=== PATIENT | female | born 1955 | race Caucasian/White ===

== ENCOUNTER → 2016-08-02 | Outpatient (CLI) | payer OTHER ==
[~2016-08-02] MED LIST: ANEXSIA 5/325 M1 TA1 PO; ANTI-INFLAMMATORY; ASPIRIN81 M2 PO; CERTAGEN PO; CHOLESTEROL MED; COUMADIN4 MG PO; ETODOLAC500 MG PO; HYDROCODON-ACE1 EAC5 PO; LOPID600 MG PO; LOVENOX40 MG/0.4 INJ; MULTI VITAMIN1 EACH PO; PERCOCET 5/321 UDTAB PO; TRAMADOL HCL50 M1 PO; ULTRAM PO; VIT B-12; VITAMIN C250 M1 PO; [UNRECOGNIZED DRUG - OTHER]; [UNRECOGNIZED DRUG - OTHER] PO
--- NOTE | ~2016-08-02 | MY7 ---
[facility] A Service of [facility] RADIOLOGY TEXT RESULTS PATIENT: MYNOR LAUREN LOCATION: [facility] : 55 UNIT #: [id number] AGE: [address]: MELANIE MENDOZA MD SEX: F ORDER DR: [id number] [facility] [address] [place] [place], [place] [address] [id number] O MR#: [id number] Acc #: [id number] NAME: MYNOR LAUREN : 1955 SEX: F STUDY DATE/TIME: 08/02/2016 8:02 UNIT: [facility] ROOM: STUDY DESCRIPTION: MY Mammogram Dx Dig Lt Attending Physician: Melanie Mendoza M.D. Referring Physician: Melanie Mendoza M.D. Ordering Physician: Melanie Mendoza M.D. Primary Care Physician: Melanie Mendoza M.D. MEDICAL IMAGING REPORT This report is preliminary unless electronic signature is present EXAM Left digital diagnostic mammogram COMPARISON Right digital diagnostic mammogram dated January 20, 2016 as well screening mammograms dated January 19, 2016; November 11, 2014; November 09, 2013; October 07, 2011; January 16, 2010; April 26, 2008 and February 03, 2007. INDICATION 60-year-old female with 3 medial posterior third left breast asymmetries which were sonographically occult and thought to be probably benign, likely representing normal breast tissue excluded from field of view on prior mammograms. 6-month followup was recommended. FINDINGS Full field left CC, XCCM, MLO and ML views of the left breast were obtained. Breast tissues are extremely dense which may lower the sensitivity of mammography. The 2 asymmetries of concern do not persist on the full field left CC view confirming summation artifact. The mammographic pattern is otherwise stable. There are no suspicious findings seen in the left breast today. IMPRESSION No mammographic evidence of malignancy. The asymmetries of initial concern do not persist today and this is most consistent with summation artifact of normal overlapping fibroglandular tissues. The mammographic pattern now appears stable going back to multiple prior mammograms. Patient was instructed that given her dense breast tissue, she would benefit from annual screening breast tomosynthesis (3-D mammography) which is performed at [facility] on [address]. This is due to increased sensitivity for detection of small invasive cancers as well as diminished false positive callback rate. At the very least, [facility] A Service of [facility] RADIOLOGY TEXT RESULTS PATIENT: MYNOR LAUREN LOCATION: [facility] : 55 UNIT #: [id number] AGE: [address]: MELANIE MENDOZA MD SEX: F ORDER DR: continued annual 2-D screening mammography is recommended which is next due in January of this year. Findings and recommendations were discussed with the patient today. Patients over the age of 40 are entered into a reminder system with target due date for the next mammogram. A result letter will also be sent to the patient. BIRADS: 1 Negative Dictated by... Yobani Obrien M.D. THIS IS AN ELECTRONICALLY VERIFIED REPORT Yobani Obrien M.D. at 08/04/2016 12:00 PM Devorah TD: 08/02/2016 09:14 JOB #: [id number] MEDICAL IMAGING REPORT COPY
== END | disposition home or self-care (01) ==
LOC: CWCC 07:25
DX: N63 Unspecified lump in breast (principal)
CPT/HCPCS: G0206

== ENCOUNTER → 2016-08-20 | Day surgery (SDC) | payer OTHER ==
--- NOTE | ~2016-08-20 | OR ---
Unit #: [id number] #: [id number] Patient: MYNOR LAUREN [id number] [address] [place], [place] [address] [id number] O MR#: [id number] NAME: MYNOR LAUREN ROOM: Date of Procedure: 08/20/2016 Admission Date: 08/20/2016 Surgeon: Pk Sena M.D. : 1955 Attending Physician: Pk Sena M.D. Primary Care Physician: Jenelle Chilel M.D. OPERATIVE REPORT PREOPERATIVE DIAGNOSIS Colorectal cancer screening in an average-risk patient. PROCEDURE PERFORMED Colonoscopy and biopsies. POSTOPERATIVE DIAGNOSES 1. Mild sigmoid and descending colon diverticulosis. 2. The patient had classic changes of ischemic colitis involving the distal descending colon. These were localized ulceration with erythema with clear line of demarcation proximally and distally. Appropriate biopsies were obtained and sent for histology. Rest of the examination up to cecum and terminal ileum was normal. No polyps were seen. RECOMMENDATIONS The patient will be followed up at least once in the office in about 3 months' time in case she has any symptomatology. The results of the biopsies will be complicated to her. SEDATION USED MAC. DESCRIPTION OF PROCEDURE Following detailed explanation of potential risks and complications of a colonoscopy, namely perforation, bleeding, and complication related to sedation, the patient was brought to GI lab and laid in the left lateral decubitus position. A digital rectal examination was performed which was normal. Lubricated tip of the Olympus video colonoscope was inserted through the anus and advanced under direct vision. The scope was advanced past rectum into the sigmoid colon. A few small diverticula were seen in this area. The patient was noted to have localized area of ulceration with coalescing ulcers and clear line of demarcation from normal to abnormal in the area of the distal descending colon. This extended for about 2 to 3 cm with again an abrupt line of demarcation proximally and normal mucosa proximally. The scope tip was then navigated all the way up to cecum with visualization of the ileocecal valve and the appendiceal orifice. Preparation was excellent with good visualization and photodocumentation was obtained. Last several inches of terminal ileum were also visualized after intubation of the ileocecal valve and appeared normal. Successive segments of the colonic mucosa were examined upon withdrawal and appeared unremarkable except for the area of ulceration noted earlier. Appropriate biopsies were obtained from this area. Other Unit #: [id number] #: [id number] Patient: MYNOR LAUREN than the scant diverticula noted adjacent to the sigmoid and descending colon, no other abnormalities were noted. The patient did not have any polyps. No significant hemorrhoids were seen at the anal verge. The scope was then withdrawn and the patient returned to recovery area. She tolerated the procedure without any postprocedure complications. Dictated by... Tesha Malcolm/alexa TD: 08/20/2016 15:39 JOB #: [id number] OPERATIVE REPORT X kP Sena MD X PROCEDURE OPERATIVE NOTE
== END | disposition home or self-care (01) ==
LOC: COPS 08:37
PROVIDERS: Internal Medicine Gastroenterology
PROC: 0DBM8ZX Excision of Descending Colon, Via Natural or Artificial Opening Endoscopic, Diagnostic (ICD-10-PCS; principal; 2016-08-20 10:30)
DX: Z12.11 Encounter for screening for malignant neoplasm of colon (principal); K55.9 Vascular disorder of intestine, unspecified; K57.30 Diverticulosis of large intestine without perforation or abscess without bleeding; M19.90 Unspecified osteoarthritis, unspecified site; F17.200 Nicotine dependence, unspecified, uncomplicated; Z79.899 Other long term (current) drug therapy; Z96.642 Presence of left artificial hip joint
CPT/HCPCS: 88305; J2405